=== PATIENT | male | born 1995 | race Caucasian/White ===

== ENCOUNTER 2016-07-14 09:18 | Emergency (ER) | payer OTHER ==
--- NOTE | 2016-07-14 11:01 | DIAGNOSTIC IMAGING REPORT ---
PROCEDURE: XR CLAVICLE - RIGHT INDICATION: CLAVICLE PAIN TECHNIQUE: Two views. COMPARISON: None. FINDINGS: Osseous structures are normal. IMPRESSION: 1. Normal right clavicle.
--- NOTE | 2016-07-14 11:01 | DIAGNOSTIC IMAGING REPORT ---
PROCEDURE: XR CLAVICLE - RIGHT INDICATION: CLAVICLE PAIN TECHNIQUE: Two views. COMPARISON: None. FINDINGS: Osseous structures are normal. IMPRESSION: 1. Normal right clavicle.
--- NOTE | 2016-07-14 11:19 | ED ORDER SUMMARY ---
..... Patient: SHONDA ZHANG OrderSheet [facility] VisitID: [id number] [place] [address] 21y, M Registration Date/Time: 07/14/2016 ORDER SHEET Weight: 77.1 kg (stated) Allergies: No Known Drug Allergy GENERAL ORDERS: Clavicle Right Urgent (10:05 07/14/2016 Narda Suazo) (Ack 10:10 Ivan) (10:16 Ivan) MEDICATION ORDERS: IV FLUIDS: ORDER SHEET NOTES: [Electronically signed by Rosa Elena Wise R.N. (12:34 07/14/2016)] [Electronically signed by Ariel Wharton Dr. (21:38 07/14/2016)] [Electronically locked/signed by Rosa Elena Wise R.N. (12:34 07/14/2016)]
--- NOTE | 2016-07-14 11:19 | ED NURSING NOTES ---
Clinical Report - Nurses [facility] [address] [place] [place] [address] 07/14/2016 9:22 [id number] TRI[facility] Triage time 09:41. Acuity: LEVEL 4. Chief Complaint: SPORTS INJURY and (unknown). Alert. No acute distress. FIORELLA COMA SCORE: [place] Coma Scale: 15- eyes open spontaneously (4); best verbal response- oriented x 4 (5); best motor response- obeys commands (6). --09:48 Rosa Elena Wise R.N. 09:41 07/14/16. BP: 123/69. HR: 64. RR: 16. O2 saturation: 100% on room air. Temp: 98.3 F (oral). Pain level now: 0/10. --09:48 Rosa Elena Wise R.N. Weight: 77.1 kg stated. Height/Length: 67 inches Per Patient. BMI: 26.6. --09:45 Rosa Elena Wise R.N. Medications None. --09:44 Rosa Elena Wise R.N. Medication/allergy information source: the patient. --09:48 Rosa Elena Wise R.N. Allergies No Known Drug Allergy. --09:44 Rosa Elena Wise R.N. History Arrived by private vehicle. Historian: patient. Accompanied by friend. Primary physician (unknown). Location of injuries: right clavicle area. This occurred at an unknown time. ( no pain, noticed about a month ago that his clavicle was "moving"). 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 SOCIAL HX: Light tobacco smoker- less than 1/2 a pack per day. Occasional alcohol use. History of drug use: marijuana. FALL RISK ASSESSMENT: Fall risk assessment completed. No fall risk identified. FUNCTIONAL ASSESSMENT: Functional assessment: no impairments noted. LEARNING NEEDS ASSESSMENT: The learning needs assessment revealed no barriers. --09:48 Rosa Elena Wise R.N. PROBLEMS: no known problems. ADDITIONAL SURGERIES: Rt arm. Shoulder Surgery. --09:44 Rosa Elena Wise R.N. Assessment GENERAL / NEURO / PSYCH: Alert. Oriented X 4. Appears in no acute distress. Patient appears calm and cooperative. RESPIRATORY: Respirations not labored. SKIN: Skin is warm and dry. --09:48 Rosa Elena Wise R.N. Interventions ID band on patient. To treatment room. --09:48 Rosa Elena Wise R.N. PHYSICAL ASSESSMENT 09:50 07/14/16. Ambulatory to room. Patient gowned. GENERAL / NEURO / PSYCH: Alert. Oriented X 4. Appears in no acute distress. RESPIRATORY: Respirations not labored. SKIN: Skin intact. Skin is warm and dry. --09:50 Rosa Elena Wise R.N. NURSING PROGRESS NOTES 09:50 07/14/16. Call light placed in reach. Side rails up x 1. Bed placed in lowest position. Brakes of bed on. --09:50 Rosa Elena Wise R.N. 11:25. The patient is calm and resting quietly. Overall patient status is the same- he states feels the same. GENERAL / NEURO / PSYCH: Alert. Oriented X 4. RESPIRATORY: No respiratory distress. SKIN: Skin is warm and dry. --12:10 Rosa Elena Wise R.N. DISPOSITION / DISCHARGE Departure time: 1125. Condition at departure: stable. No learning barriers present. Discharge instructions provided and reviewed with the patient. Patient verbalized understanding. Written instructions provided in Vietnamese. The patient was discharged home and unaccompanied at time of discharge. He left the Emergency Department ambulatory and via private vehicle. FALL RISK ASSESSMENT: Fall risk assessment completed. No fall risk identified. --12:11 Rosa Elena Wise R.N. 11:25 07/14/16. BP: 134/69. HR: 60. RR: 16. --12:11 Rosa Elena Wise R.N. Locked/Released at 07/14/2016 12:34 by Rosa Elena Wise R.N.
--- NOTE | 2016-07-14 11:19 | ED CLINICAL REPORT ---
Clinical Report - Physicians/Mid Levels [facility] [address] [place] [address] 07/14/2016 9:22 Patient: SHONDA ZHANG Time Seen: 09:33; initial patient contact. Arrived- By private vehicle. Historian- patient. HISTORY OF PRESENT ILLNESS Chief Complaint: Injury to right clavicle. The injury happened unknown. Patient did not fall. This was not a raising of the arm dislocation or twisting injury or caused by a direct blow. (unknown). ( recently noticed the sternal-clavicular joint is hypermobile on the R). Patient is not experiencing pain. Patient denies injury to the head or neck. REVIEW OF SYSTEMS No swelling, tingling, numbness, weakness or joint pain. PAST HISTORY Rt arm. Shoulder Surgery. The patient's dominant hand is the right. Problems: no known problems. Medications: None. Allergies: No Known Drug Allergy. SOCIAL HISTORY Current every day smoker. History of drug use: marijuana. ADDITIONAL NOTES The nursing notes have been reviewed with agreement regarding the chief complaint, PMH and patient medications and allergies. PHYSICAL EXAM Vital Signs: 07/14/2016 09:41 BP: 123/69. HR: 64. RR: 16. O2 saturation: 100%. Temp: 98.3 F. Pain level now: 0/10. Appearance: Alert. Oriented X3. No acute distress. Skin: Skin intact. Skin warm and dry. Normal skin color. Extremities: Right clavicle area: mild deformity consistent with a sternoclavicular dislocation. Neurovascular intact distally. No erythema or tenderness. No limitation in ROM. Extremities otherwise negative. Neuro, Vascular and Tendons: Sensation intact. Motor intact. Vascular status intact. Neuro: Oriented X 3. No motor deficit. No sensory deficit. LABS, X-RAYS, AND EKG Rt Clavicle X-ray: (1. Normal right clavicle.). Views: AP. Technique: good. The X-rays were independently viewed by me, interpreted by the radiologist and discussed with the radiologist. Prior films were not available for comparison. Interpretation time: 11:18. PROGRESS AND PROCEDURES Disposition: Discharged home in good condition. Condition: good. CLINICAL IMPRESSION (Hyper-mobile clavicle). INSTRUCTIONS Follow-up: Screening today revealed the patient's blood pressure to be in the pre-hypertensive range. [facility] with: [facility], , [address] , [place], [phone] Follow up as needed. Call for an appointment. (Electronically signed by Ariel Wharton Dr. 07/14/2016 21:38)
--- NOTE | 2016-07-14 11:19 | ED ORDER SUMMARY ---
..... Patient: SHONDA ZHANG OrderSheet [facility] VisitID: [id number] [place] [address] 21y, M Registration Date/Time: 07/14/2016 ORDER SHEET Weight: 77.1 kg (stated) Allergies: No Known Drug Allergy GENERAL ORDERS: Clavicle Right Urgent (10:05 07/14/2016 Narda Suazo) (Ack 10:10 Ivan) (10:16 Ivan) MEDICATION ORDERS: IV FLUIDS: ORDER SHEET NOTES: [Electronically signed by Rosa Elena Wise R.N. (12:34 07/14/2016)] [Electronically signed by Ariel Wharton Dr. (21:38 07/14/2016)] [Electronically locked/signed by Rosa Elena Wise R.N. (12:34 07/14/2016)]
--- NOTE | 2016-07-14 11:19 | ED NURSING NOTES ---
Clinical Report - Nurses [facility] [address] [place] [place] [address] 07/14/2016 9:22 [id number] Triage time 09:41. Acuity: LEVEL 4. Chief Complaint: SPORTS INJURY and (unknown). Alert. No acute distress. FIORELLA COMA SCORE: [place] Coma Scale: 15- eyes open spontaneously (4); best verbal response- oriented x 4 (5); best motor response- obeys commands (6). --09:48 Rosa Elena Wise R.N. 09:41 07/14/16. BP: 123/69. HR: 64. RR: 16. O2 saturation: 100% on room air. Temp: 98.3 F (oral). Pain level now: 0/10. --09:48 Rosa Elena Wise R.N. Weight: 77.1 kg stated. Height/Length: 67 inches Per Patient. BMI: 26.6. --09:45 Rosa Elena Wise R.N. Medications None. --09:44 Rosa Elena Wise R.N. Medication/allergy information source: the patient. --09:48 Rosa Elena Wise R.N. Allergies No Known Drug Allergy. --09:44 Rosa Elena Wise R.N. History Arrived by private vehicle. Historian: patient. Accompanied by friend. Primary physician (unknown). Location of injuries: right clavicle area. This occurred at an unknown time. ( no pain, noticed about a month ago that his clavicle was "moving"). 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 Occasional alcohol use. History of drug use: marijuana. FALL RISK ASSESSMENT: Fall risk assessment completed. No fall risk identified. FUNCTIONAL ASSESSMENT: Functional assessment: no impairments noted. LEARNING NEEDS ASSESSMENT: The learning needs assessment revealed no barriers. --09:48 Rosa Elena Wise R.N. PROBLEMS: no known problems. ADDITIONAL SURGERIES: Rt arm. Shoulder Surgery. --09:44 Rosa Elena Wise R.N. Assessment GENERAL / NEURO / PSYCH: Alert. Oriented X 4. Appears in no acute distress. Patient appears calm and cooperative. RESPIRATORY: Respirations not labored. SKIN: Skin is warm and dry. --09:48 Rosa Elena Wise R.N. Interventions ID band on patient. To treatment room. --09:48 Rosa Elena Wise R.N. PHYSICAL ASSESSMENT 09:50 07/14/16. Ambulatory to room. Patient gowned. GENERAL / NEURO / PSYCH: Alert. Oriented X 4. Appears in no acute distress. RESPIRATORY: Respirations not labored. SKIN: Skin intact. Skin is warm and dry. --09:50 Rosa Elena Wise R.N. NURSING PROGRESS NOTES 09:50 07/14/16. Call light placed in reach. Side rails up x 1. Bed placed in lowest position. Brakes of bed on. --09:50 Rosa Elena Wise R.N. 11:25. The patient is calm and resting quietly. Overall patient status is the same- he states feels the same. GENERAL / NEURO / PSYCH: Alert. Oriented X 4. RESPIRATORY: No respiratory distress. SKIN: Skin is warm and dry. --12:10 Rosa Elena Wise R.N. DISPOSITION / DISCHARGE Departure time: 1125. Condition at departure: stable. No learning barriers present. Discharge instructions provided and reviewed with the patient. Patient verbalized understanding. Written instructions provided in Faroese. The patient was discharged home and unaccompanied at time of discharge. He left the Emergency Department ambulatory and via private vehicle. FALL RISK ASSESSMENT: Fall risk assessment completed. No fall risk identified. --12:11 Rosa Elena Wise R.N. 11:25 07/14/16. BP: 134/69. HR: 60. RR: 16. --12:11 Rosa Elena Wise R.N. Locked/Released at 07/14/2016 12:34 by Rosa Elena Wise R.N.
--- NOTE | 2016-07-14 11:19 | ED CLINICAL REPORT ---
Clinical Report - Physicians/Mid Levels [facility] [address] [place] [address] 07/14/2016 9:22 Patient: SHONDA ZHANG Time Seen: 09:33; initial patient contact. Arrived- By private vehicle. Historian- patient. HISTORY OF PRESENT ILLNESS Chief Complaint: Injury to right clavicle. The injury happened unknown. Patient did not fall. This was not a raising of the arm dislocation or twisting injury or caused by a direct blow. (unknown). ( recently noticed the sternal-clavicular joint is hypermobile on the R). Patient is not experiencing pain. Patient denies injury to the head or neck. REVIEW OF SYSTEMS No swelling, tingling, numbness, weakness or joint pain. PAST HISTORY Rt arm. Shoulder Surgery. The patient's dominant hand is the right. Problems: no known problems. Medications: None. Allergies: No Known Drug Allergy. SOCIAL HISTORY Current every day smoker. History of drug use: marijuana. ADDITIONAL NOTES The nursing notes have been reviewed with agreement regarding the chief complaint, PMH and patient medications and allergies. PHYSICAL EXAM Vital Signs: 07/14/2016 09:41 BP: 123/69. HR: 64. RR: 16. O2 saturation: 100%. Temp: 98.3 F. Pain level now: 0/10. Appearance: Alert. Oriented X3. No acute distress. Skin: Skin intact. Skin warm and dry. Normal skin color. Extremities: Right clavicle area: mild deformity consistent with a sternoclavicular dislocation. Neurovascular intact distally. No erythema or tenderness. No limitation in ROM. Extremities otherwise negative. Neuro, Vascular and Tendons: Sensation intact. Motor intact. Vascular status intact. Neuro: Oriented X 3. No motor deficit. No sensory deficit. LABS, X-RAYS, AND EKG Rt Clavicle X-ray: (1. Normal right clavicle.). Views: AP. Technique: good. The X-rays were independently viewed by me, interpreted by the radiologist and discussed with the radiologist. Prior films were not available for comparison. Interpretation time: 11:18. PROGRESS AND PROCEDURES Disposition: Discharged home in good condition. Condition: good. CLINICAL IMPRESSION (Hyper-mobile clavicle). INSTRUCTIONS Follow-up: Screening today revealed the patient's blood pressure to be in the pre-hypertensive range. [facility] with: [facility], , [address] , [place], [phone] Follow up as needed. Call for an appointment. (Electronically signed by Ariel Wharton Dr. 07/14/2016 21:38)
--- NOTE | 2016-07-14 21:39 | ED MAR SUMMARY ---
..... Medication Administration Record [facility] [address] [place], [place] [id number] Patient: SHONDA ZHANG Visit ID: [id number] 21y, M Weight: 77.1 kg Height/Length: 67 in BMI: 26.6 ALLERGIES: No Known Drug Allergy
--- NOTE | 2016-07-14 21:39 | ED MAR SUMMARY ---
..... Medication Administration Record [facility] [address] [place], [place] [id number] Patient: SHONDA ZHANG Visit ID: [id number] 21y, M Weight: 77.1 kg Height/Length: 67 in BMI: 26.6 ALLERGIES: No Known Drug Allergy
--- NOTE | 2016-07-14 21:39 | ED DISCHARGE INSTRUCTIONS ---
Patient: SHONDA ZHANG General Instructions [facility] VisitID: [id number] [address] [place] [address] 21y, M Registration Date/Time: 07/14/2016 (Hyper-mobile clavicle). INSTRUCTIONS Follow-up: Screening today revealed the patient's blood pressure to be in the pre-hypertensive range. [facility] with: [facility], , [address], [place] [phone] Follow up as needed. Call for an appointment. (Electronically signed by Ariel Wharton Dr. 07/14/2016 21:38)
--- NOTE | 2016-07-14 21:39 | ED DISCHARGE INSTRUCTIONS ---
Patient: SHONDA ZHANG General Instructions [facility] VisitID: [id number] [address] [place] [address] 21y, M Registration Date/Time: 07/14/2016 (Hyper-mobile clavicle). INSTRUCTIONS Follow-up: Screening today revealed the patient's blood pressure to be in the pre-hypertensive range. Follow-up with: [facility], , [address], [place] [address] Follow up as needed. Call for an appointment. (Electronically signed by Ariel Wharton Dr. 07/14/2016 21:38)
--- NOTE | 2016-07-14 21:39 | ED MED RECONCILIATION SUMMARY ---
Patient: CHARO ZHANGO Juve Medication Reconciliation Report [facility] VisitID: [id number] [address] [place] [address] 21y, M Registration Date/Time: 07/14/2016 Weight: 77.1 kg Height/Length: 67 in. BMI: 26.6 ALLERGIES: No Known Drug Allergy The patient's Home Medications are listed below: NONE. The source(s) of the original Home Medication information: patient The following Medications were given to the patient in the Emergency Department: None. The following Medications were prescribed to the patient: None.
--- NOTE | 2016-07-14 21:39 | ED MED RECONCILIATION SUMMARY ---
Patient: CHARO ZHANGO Juve Medication Reconciliation Report [facility] VisitID: [id number] [address] [place] [address] 21y, M Registration Date/Time: 07/14/2016 Weight: 77.1 kg Height/Length: 67 in. BMI: 26.6 ALLERGIES: No Known Drug Allergy The patient's Home Medications are listed below: NONE. The source(s) of the original Home Medication information: patient The following Medications were given to the patient in the Emergency Department: None. The following Medications were prescribed to the patient: None.
== END 2016-07-14 11:25 | disposition home or self-care (01) ==
LOC: ED SRH 09:18
DX: M35.7 Hypermobility syndrome (principal); X58.XXXA Exposure to other specified factors, initial encounter; Y93.9 Activity, unspecified; Y92.9 Unspecified place or not applicable; Y99.9 Unspecified external cause status